=== PATIENT | male | born 2000 | race Caucasian/White ===

== ENCOUNTER 2021-02-05 17:13 | Emergency (ER) | payer OTHER ==
[~2021-02-05] VITALS: Ht 177.8 cm; Wt 83.0 kg
[2021-02-05] MEDS ORDERED: diphenhydrAMINE HCL 50 MG/ML VIAL ONE (17:42)
[2021-02-05] MEDS ORDERED: EPINEPHRINE (1:1000) 1 MG/ML AMPUL ONE (17:42)
[2021-02-05] MEDS ORDERED: methylPREDNISolone SOD SUCC 125 MG/2ML VIAL ONE (17:43)
[2021-02-05] MEDS ORDERED: FAMOTIDINE/PF INJ 20 MG/2 ML VIAL IV ONE ×2 (17:43→18:00)
--- NOTE | 2021-02-05 17:53 | NUR ---
Patient came in to the er c/o throat tightness, discomfort s/p eating ice cream with possible cashew ingredients 1 hr [employer]. On room air, connected to the monitor and pulse ox, kept comfortable, will continue to monitor accordingly.
[2021-02-05] MEDS ORDERED: EPINEPHRINE (1:1000) MDV 30 MG/30ML VIAL SUBCUT ONE (18:00)
[2021-02-05] MEDS ORDERED: diphenhydrAMINE HCL 50 MG/ML VIAL IV ONE (18:00)
[2021-02-05] MEDS ORDERED: IV NS 0.9% 1,000 ML BAG IV ONE (18:00)
[2021-02-05] MEDS ORDERED: methylPREDNISolone SOD SUCC 125 MG/2ML VIAL IV ONE (18:00)
--- NOTE | 2021-02-05 19:14 | NUR ---
REC'D PT SITTING IN BED AWAKE, ALERT AND RESPONSIVE. BREATHING EVENLY. NO SOB. NAD NOTED . PT REPORTED FEELING BETTER, REMAINED ON MONITOR W/ STABLE VS.
[2021-02-05] MEDS ORDERED: FAMO-131 PO (19:49)
[2021-02-05] MEDS ORDERED: EPIN0.3P3 IJ (19:49)
[2021-02-05] MEDS ORDERED: PRED20TA PO (19:49)
[2021-02-05] MEDS ORDERED: DIPH25CA83 PO (19:49)
--- NOTE | 2021-02-05 20:25 | NUR ---
Pt reported feeling much better. medically stable for d/c per PA and Dr. Wilson. IV removed. Catheter intact and site benign. Pressure and 4x4 applied to site. No bleeding noted.Patient discharged to home in stable condition. Rx and Written and verbal after care instructions given. Patient verbalizes understanding of instruction.
[2021-02-05 20:26] VITALS: BP 110/73
== END 2021-02-05 20:26 | disposition home or self-care (01) ==
LOC: ER 17:13
DX: T78.01XA Anaphylactic reaction due to peanuts, initial encounter (principal); Z91.010 Allergy to peanuts; Z88.0 Allergy status to penicillin; Z79.899 Other long term (current) drug therapy
CPT/HCPCS: 96361; 96372; 96374; 96375; 99284; J0171 ×2; J1200; J2930; J3490; J7030